=== PATIENT | male | born 1985 ===

== ENCOUNTER 2021-12-27 20:31 | Emergency (ER) | payer BC, SELFPAY ==
[2021-12-27 20:43] VITALS: BP 166/98; PULSE 91; RESP 16; TEMP 36.6; O2SAT 95
[2021-12-27 20:47] VITALS: RESP 18
--- NOTE | 2021-12-27 21:27 | ED.GENADUL_ITS ---
Discharge Plan Discharge Details Chief Complaint: SOB Primary Care Provider: Unknown,Unknown ED Provider: Allan Sparks Home Meds and New Rx's Prescriptions: No Action albuterol sulfate 90 mcg/actuation Hfa Aerosol Inhaler 2 puff INHALATION 6XD PRN Flovent 110 mcg/actuation Hfa Aerosol Inhaler 2 puff INHALATION Q12H Medical Decision Making Patient with normal affect. Unfortunately has run out of his antibiotic. History of albuterol via MDI and spacer. Patient feels back at baseline. He will be sent home with an MDI. He is here for the weekend he should see his PCP next week HPI General Date/Time Provider Initiated Documentation: 12/27/21 21:27 . HPI Narrative: 36-year-old presents to the emergency department after having felt short of breath/wheezing and noticed that his MDI was empty. He is mildy sob, no cough no fever no BARR, No N/V he is visiting [facility] and could not go the pharmacy for a refill. No recent ED visists , has not been on steroids for years Related Data Home Medications Medication Instructions Recorded Confirmed albuterol sulfate 90 mcg/actuation 2 puff inhalation 6XD PRN 12/27/21 12/27/21 aerosol inhaler fluticasone propionate 110 2 puff inhalation Q12H 12/27/21 12/27/21 mcg/actuation HFA aerosol inhaler Allergies Allergy/AdvReac Type Severity Reaction Status Date / Time shellfish derived Allergy Intermediate Nausea Unverified 12/27/21 20:46 General Stated Complaint: SOB GENARO: 4 Review of Systems Narrative: Constitutional negative for fever chills malaise and fatigue HEENT negative Cardiovascular no palpitations Respiratory see HPI GI no nausea no vomiting no abdominal pain MSK negative Skin negative no rash Neuro no headaches Psych no anxiety Allergic negative PFSH Social History Smoking/Tobacco Use Status: Never Smoking risk assessment performed?: Yes Alcohol Intake: current Alcohol Intake frequency: a few times a month Alcohol type: beer Substance use type: does not use Do you feel safe at home: Yes Do you feel safe in your relationship?: Yes Exam Narrative Exam Narrative: Awake alert [place] x3 calm no acute distress pleasant cooperative GABRIEL EOMI MMM anicteric Regular rhythm and rate Wheezing bilaterally normal work of breathing Skin no rashes Neuro grossly intact Extremities no edema Psych normal mood and affect Course Vital Signs Vital signs: Vital Signs Temperature 36.6 C 12/27/21 20:43 Pulse 91 H 12/27/21 20:43 Respiratory Rate 16 12/27/21 20:43 Blood Pressure 166/98 H 12/27/21 20:43 Pulse Oximetry 95 12/27/21 20:43 Temperature 36.6 C 12/27/21 20:43 Temperature Source Skin 12/27/21 20:43 Pulse 91 H 12/27/21 20:43 Respiratory Rate 18 12/27/21 20:47 Respiratory Effort Labored 12/27/21 20:47 Respiratory Depth Normal 12/27/21 20:47 Respiratory Pattern Normal 12/27/21 20:47 Blood Pressure 166/98 H 12/27/21 20:43 Blood Pressure Position Supine 12/27/21 20:43 Pulse Oximetry 95 12/27/21 20:43 Pain Level 6 12/27/21 20:43 PAWSS Have you Been Recently Intoxicated or Drunk Within the Last 30 days?: No Have you Ever Experienced Previous Episodes of Alcohol Withdrawal?: No Have you ever Experienced Withdrawal Seizures?: No Have you ever Experienced Delirium Tremens(DT)s?: No Have you ever undergone Alcohol Rehabilitation Treatment (i.e, inpt ot outpatient treatment programs)?: No Have you ever Experienced Blackouts?: No Have you ever Combined Alcohol with other Downers within the last 90 days?: No Have you ever Combined Alcohol with any other Substance of Abuse during the last 90 days?: No Positive Blood Alcohol level on Presentation? [PCS.BAL]: No Evidence of Increased Autonomic Activity (i.e. HR>120, tremor, sweating, agitation, nausea)?: No Result: 0
[2021-12-27] MEDS: Albuterol HFA 8 GM 60 PUFF INH IH (21:36)
[2021-12-27] MEDS: Inhaler, Assist Device 1 EACH MC (21:37)
[2021-12-27 21:54] VITALS: PULSE 85; O2SAT 98
== END 2021-12-27 21:55 | disposition home or self-care (01) ==
PROVIDERS: Emergency Provider Emergency Medicine
DX: J45.909 Unspecified asthma, uncomplicated (principal); R06.02 Shortness of breath
CPT/HCPCS: 99283